=== PATIENT | female | born 1940 | race Caucasian/White ===

== ENCOUNTER → 2018-11-15 | Outpatient (CLI) | payer MEDICARE ==
--- NOTE | 2018-11-16 05:29 | CT ---
EXAMINATION TYPE: CT abdomen pelvis wo con DATE OF EXAM: 11/15/2018 COMPARISON: None HISTORY: 78-year-old female with pain and umbilical hernia CT DLP: 514.9 mGycm. Automated exposure control for dose reduction was used. TECHNIQUE: Contiguous axial scanning of the abdomen and pelvis without IV contrast. Coronal and sagit miriam reconstructions performed. FINDINGS: Heart borderline enlarged without pericardial effusion. Mitral and aortic valvular calcifications are noted along with coronary vessel calcifications. Ectatic ascending aorta at 3.7 cm. Strandy scarring or atelectasis in the lower lungs. Noncontrast appearance of the liver, gallbladder, adrenal glands, spleen, and pancreas show no gross abnormality. Diverticulosis of the second and third portions of the duodenum measuring up to 3.4 cm and projecting into the pancreatic head regions. The kidneys show bilateral extrarenal pelves. There is a partially exophytic 2.4 cm cortical cyst fro m the lower pole left kidney. No dilated small bowel, free fluid, or free air. No mesenteric or retroperitoneal lymphadenopathy. Normal appendix. Moderate stool burden. Redundant sigmoid colon. Mid sigmoid diverticulosis. No peric olonic inflammatory change. There is a small to moderate-sized fatty umbilical hernia measuring 3.2 cm craniocaudal and 2.8 cm wi de. Bladder partially distended. Uterus retroverted. Both ovaries visualized. No abnormal fluid collectio n in the pelvis or pelvic lymphadenopathy seen. Bulging laxity of the levator ani musculature. Bones: Osteitis pubis. Mild degenerative change of both hips. Hypertrophic facet arthropathy througho ut with moderate to advanced degenerative disc disease lumbar spine. Trace grade 1 anterolisthesis L5 -S1. IMPRESSION: 1. Small to moderate-sized fatty umbilical hernia measuring 3.2 x 2.8 cm. 2. Mid sigmoid diverticulosis and pelvic floor relaxation. Advanced degenerative disc disease throug hout the lumbar spine.
== END | disposition home or self-care (01) ==
LOC: RADCTMAIN 15:40
PROVIDERS: ATTEND Family Medicine
DX: K42.9 Umbilical hernia without obstruction or gangrene (principal); K57.30 Diverticulosis of large intestine without perforation or abscess without bleeding
CPT/HCPCS: 74176